=== PATIENT | male | born 1980 | race Caucasian/White ===

== ENCOUNTER 2020-11-11 18:12 | Emergency (ER) | payer MEDICARE ==
[2020-11-11 18:30] VITALS: O2SAT 97
[2020-11-11] MEDS ORDERED: Cleocin Phosphate IV 600 MG/4 ML IM ONE (18:30)
[2020-11-11] MEDS ORDERED: Cleocin Phosphate IV 600 MG/4 ML ONE (18:33)
--- NOTE | 2020-11-11 18:37 | ERPHSYRPT ---
- History of Present Illness Time Seen by Provider: 11/11/20 18:32 Source: patient Exam Limitations: no limitations Patient Subjective Stated Complaint: Pt had what he thought was a zit and he popped it about 3 days ago and now his entire left face is swollen, pt also has another abscess on the right cheek, the one on the right is effecting his breathing from his nose Triage Nursing Assessment: Pt brought to the ER by his mother, hypertensive, cyst on the right cheek, abscess to the left cheek, left side of face is swollen, skin n/w/d, pulses normal, denies any other issues, doesn't appear to be in any distress Physician History: Patient is a 40-year-old white male who had a pimple-like lesion on the left cheek which he squeezed and now has a large area of redness induration and tenderness consistent with cellulitis. He also has longstanding a cystic structure on the right side of his nose he would like to have both removed we explained that the cyst is more amenable to us surgical procedure to remove it all and that the left side of his face will need antibiotic therapy to localize the infection before it can be drained or drained spontaneously. Timing/Duration: day(s) (4), worse Quality: painful Severity: moderate Location: face Allergies/Adverse Reactions: No Known Drug Allergies Allergy (Verified 11/11/20 18:29) Home Medications: Levocetirizine Dihydrochloride 5 mg PO DAILY 11/11/20 [History] Omeprazole 40 mg PO DAILY 11/11/20 [History] Hx Tetanus, Diphtheria Vaccination/Date Given: Yes Hx Influenza Vaccination/Date Given: No Hx Pneumococcal Vaccination/Date Given: No Travel Risk - International Travel Have you traveled outside of the country in past 3 weeks: No - Coronavirus Screening Are you exhibiting any of the following symptoms?: No Close contact with a COVID-19 positive Pt in past 14-21 Days: No - Vaccine Status Have you recieved a Covid-19 vaccination: No - Review of Systems Constitutional: No Fever, No Chills Eyes: No Symptoms Ears, Nose, & Throat: No Symptoms Respiratory: No Cough, No Dyspnea Cardiac: No Chest Pain, No Edema, No Syncope Abdominal/Gastrointestinal: No Abdominal Pain, No Nausea, No Vomiting, No Diarrhea Genitourinary Symptoms: No Dysuria Musculoskeletal: No Back Pain, No Neck Pain Skin: Cellulitis, No Rash Neurological: No Dizziness, No Focal Weakness, No Sensory Changes Psychological: No Symptoms Endocrine: No Symptoms All Other Systems: Reviewed and Negative - Past Medical History Pertinent Past Medical History: Yes Respiratory History: Asthma - Past Surgical History Past Surgical History: No - Social History Smoking Status: Current every day smoker How long have you smoked: 6 Exposure to second hand smoke: Yes Alcohol Use: Socially Drug Use: none Patient Lives Alone: No Significant Family History: no pertinent family hx - Nursing Vital Signs Nursing Vital Signs: Initial Vital Signs Temperature 97.5 F 11/11/20 18:19 Pulse Rate 93 H 11/11/20 18:19 Blood Pressure 144/89 11/11/20 18:19 O2 Sat by Pulse Oximetry 97 11/11/20 18:19 Pain Scale Pain Intensity 4 - Physical Exam General Appearance: mild distress, alert Eye Exam: PERRL/EOMI, eyes nml inspection Ears, Nose, Throat Exam: normal ENT inspection, pharynx normal, moist mucous membranes Neck Exam: normal inspection, non-tender, supple, full range of motion Respiratory Exam: normal breath sounds, lungs clear, No respiratory distress Cardiovascular Exam: regular rate/rhythm, normal heart sounds Gastrointestinal/Abdomen Exam: soft, mass, No tenderness Back Exam: normal inspection, normal range of motion, No CVA tenderness, No vertebral tenderness Extremity Exam: normal inspection, normal range of motion Neurologic Exam: alert, oriented x 3, cooperative, normal mood/affect, sensation nml, No motor deficits Skin Exam: other (Examination of the skin shows on the left side of the face an area of cellulitis with induration erythema and heat and tenderness.) SpO2 Interpretation: normal SpO2: 97 O2 Delivery: Room Air - Course Nursing assessment & vital signs reviewed: Yes Ordered Tests: Medication Summary Discontinued Medications Generic Name Dose Route Start Last Admin Trade Name Freq PRN Reason Stop Dose Admin Clindamycin Phosphate 600 mg 11/11/20 18:30 Cleocin Phosphate Iv 600 Mg/4 Ml IM 11/11/20 18:31 ONCE ONE - Progress Progress: unchanged - Departure Departure Disposition: Home Clinical Impression: Cellulitis of face Condition: Stable Critical Care Time: No Instructions: MRSA (DC) Prescriptions: clindamycin HCL [Cleocin HCl] 300 mg PO Q8H 10 Days #30
[2020-11-11 19:04] VITALS: BP 159/93; PULSE 80
== END 2020-11-11 19:04 | disposition home or self-care (01) ==
LOC: ED 18:12
DX: L03.211 Cellulitis of face (principal)
CPT/HCPCS: 96372; 99283